=== PATIENT | male | born 1960 | race Caucasian/White ===

== ENCOUNTER 2017-03-04 13:37 | Emergency (ER) | payer MEDICARE, MEDICAID, SELFPAY ==
[2017-03-04 13:38] VITALS: BP 151/97; PULSE 71; RESP 24; TEMP 36.9; O2SAT 98; BMI 34.3
[2017-03-04 14:53] LABS: Basophil# 0.01 X10^3/uL; Basophil% 0.1 % (0-1); Eosinophil# 0.08 X10^3/uL; Hematocrit 44.3 % (40-54); Hemoglobin 15.9 g/dl (13.0-16.5); Lymphocyte % 19.8 % (19-41); Mean Corp Hgb Conc 35.9 g/gl (32-36); Mean Corpuscular Hgb 32.1 pg (27.0-32.0); Mean Corpuscular Volume 89.3 fL (80-94); Mean Platelet Vol. 9.5 fl (6.2-12.0); Monocyte# 0.38 X10^3/uL; Monocyte% 4.7 % (0-10); Neutrophil # 5.99 X10^3/uL (2.7-7.7); Neutrophil % 74.3 % (47-70); POSITIVE COUNT NO; POSITIVE DIFFERENTIAL NO; POSITIVE MORPHOLOGY NO; Platelet Count 181 K/mm3 (150-450); RBC Distribution Width CV 12.1 % (11.6-14.6); RBC Distribution Width SD 38.7 fl (35.1-43.9); Red Blood Count 4.96 M/mm3 (4.6-6.2); White Blood Count 8.1 K/mm3 (4.4-11.0)
[2017-03-04 15:02] LABS: Anion Gap 7 (5-15); BUN 11 mg/dL (7-18); BUN/Creat Ratio 9.9 RATIO (10-20); Calcium,Total 8.6 mg/dL (8.5-10.1); Chloride 103 mmol/L (98-107); Creatinine, Serum 1.11 mg/dL (0.70-1.30); EST Glomerular Filtration Rate 73 mL/min (>60); Est Glom Filt Rate - Afr Amer 88 mL/min (>60); Estimated Creatinine Clearance 75.19 ml/min; Glucose 201 mg/dL (70-110); Potassium 4.7 mmol/L (3.5-5.1); Sodium Level 137 mmol/L (136-145)
--- NOTE | 2017-03-04 15:45 | CT_ITS ---
STUDY: CT ABDOMEN AND PELVIS WITH CONTRAST REASON FOR EXAM: Male, 56 years old. Right-sided abdominal pain beginning today. Nausea. History of pancreatitis. RADIATION DOSAGE (If Supplied By Facility): CTDIvol = ( 18.55 ) mGy, DLP = ( 1172.39 ) mGycm TECHNIQUE: Transaxial images were obtained from the dome of the diaphragm to the symphysis pubis with oral contrast. 100 ml of Isovue 300 contrast was administered. Sagittal and coronal images were reconstructed. Individualized dose optimization techniques were used for this CT. COMPARISON: Report of the CT dated January 19, 2009 which is not available for direct comparison. FINDINGS: The visualized lung bases are unremarkable. The visualized portions of the heart are within normal limits. Liver is normal size contour and density. There is a subcapsular fluid collection along the anterior aspect of segment 2 measuring 3.2 x 1.7 x 2.6 cm. There were multiple gallstones within an otherwise normal gallbladder. There is no biliary ductal dilatation. Normal spleen. Normal pancreas. No pseudocyst is seen on the current study. Normal bilateral adrenal glands. Normal right kidney. Normal left kidney. . Normal visualized stomach. A gastrostomy tube described on the prior study is no longer evident. Normal small intestine. There is a fluid collection adjacent to a small bowel loop in the right upper quadrant measuring 3.2 x 2.7 x 2.7 cm. This is best seen on image 44 of series 2. Question mesenteric cyst. There is scattered colonic diverticuli without acute inflammatory change. There is no evidence of colonic mass or obstruction. The appendix is visualized and appears normal. There is diffuse atherosclerotic calcification of the abdominal aorta, without a demonstrated aneurysm. Normal inferior vena cava. Normal retroperitoneum. Normal urinary bladder. The prostate is mildly enlarged. There is no pelvic lymphadenopathy. No free air or free fluid is seen within the peritoneal cavity. Normal abdominal wall. There are diffuse degenerative changes of the visualized lumbar spine. CT/Abdomen/Pelvis WITH Contrast IMPRESSION: 1. Question mesenteric cyst and adjacent to small bowel loop in the left mid abdomen. 2. Small cyst along the capsular surface of segment 2 of the liver. This appears decreased from the prior study. 3. Gallstones without acute cholecystitis. 4. Scattered colonic diverticuli without acute inflammatory change. 5. Degenerative changes of the lumbar spine. 6. Resolution of a loculated fluid collection along the undersurface of left diaphragm described on the prior study. Electronically Signed: Frederick Moctezuma DO at 18:39 EST Tel [phone], Service support ,
--- NOTE | 2017-03-04 15:46 | ED.VISSUMM ---
- ER Visit Summary Date of Service: 03/04/17 Chief Complaint: Abdominal pain History of Present Illness: The patient is a 56 M who states that this morning after being up for a few hours he was sitting on the couch watching TV when he began to have a right-sided abdominal pain. He can only describe it as a pain. It sometimes radiates to his back. He notes some nausea but no vomiting. States he has a bowel movement once a week. He does not believe he has had any fevers. He has never had any abdominal surgery performed. Physical Examination: Afebrile vital signs are stable Gen: Well-nourished well-developed Head: Normocephalic atraumatic Eyes: Perrl EOMI ENT: TMs clear no rhinorrhea moist mucous membranes Neck: Supple no lymphadenopathy no JVD nontender CVS: Regular rate rhythm no murmurs normal S1-S2 Respiratory: No distress clear to auscultation bilaterally chest nontender Abdomen: Soft tender to palpation in the right quadrants with guarding but without rebound nondistended normal bowel sounds no masses Back: Nontender Extremity: Nontender no edema Skin: Normal color no rash Neuro: alert orientated ?3 CN II-XII intact normal strength sensation reflexes gait cerebellar Psych: Normal affect normal mood Test Results: CBC CMP lipase were normal except for glucose of 201. CT abdomen pelvis was obtained because the patient does not localize to one particular quadrant. This demonstrated cholelithiasis. There is also fluid collection noted. Do not believe this is anything to do with the patient's pain today. Please see radiology read for that. Formal gallbladder ultrasound was obtained. This demonstrated cholelithiasis. Emergency Department Course and Treatment: Patient received IV fluids and Zofran. I have him follow-up with general surgery. I believe this was an episode of biliary colic. I will write for Felicity and some Zofran. Impression: 1. Cholelithiasis 2. Biliary colic This note was generated with [employer] dictation software. It may contain incorrect words, spelling, and punctuation that were not noted in review of the chart prior to signing ED Disposition - Plan for ED Patient: Disposition: Home or Assisted Living Chief Complaint: Abd Pain Instructions: Discharge Instructions for Gallstones Prescriptions: Hydrocodone Bitart/Apap 5-325 [Felicity 5/325] 1 - 2 tab PO Q4H PRN PRN #12 tab PRN Reason: Pain Ondansetron [Zofran Odt] 4 mg PO Q8H PRN PRN #10 tab PRN Reason: Nausea Referrals: Lupillo Hart MD [Primary Care Provider] - Patti Graff MD [STAFF PHYSICIAN] - As soon as possible
[2017-03-04] MEDS: Ondansetron 4 MG/2 ML Vial IV (15:58)
[2017-03-04] MEDS: 0.9% Normal Saline 1,000 ML 125 ML IV (15:58)
[2017-03-04 16:13] LABS: Bacteria 0 SEEN /hpf (None Seen); Mucous, Urine 0 SEEN /hpf (<or=2+)
[2017-03-04 16:14] LABS: AST(SGOT) 17 U/L (15-37); Alanine Aminotransfer ALT/SGPT 23 U/L (12-78); Albumin, Serum 3.8 g/dL (3.4-5.0); Alkaline Phosphatase 99 U/L (45-117); Globulin 4.3 g/dL (2.2-4.2); Lipase 89 U/L (73-393); Protein, Total 8.1 g/dL (6.4-8.2)
[2017-03-04 16:34] LABS: Color, Urine Yellow (Yellow); Glucose, Dipstick 1000 mg/dl (Normal); Ketone-Dipstick Negative (Negative); Leukocyte Esterase-Dipstick Negative /ul (Negative); Nitrite-Dipstick Negative (Negative); Occult Blood-Urine Negative /ul (Negative); Protein-Dipstick 30 mg/dl (Negative); Specific Gravity, Urine 1.015 (1.002-1.030); Urine Bilirubin Dipstick Negative (Negative); Urine Clarity Clear (Clear); Urine Urobilinogen 1 mg/dl (Normal)
[2017-03-04 16:52] LABS: Red Blood Cells-Urine 0-5 SEEN /hpf (0-5); Squamous Epithelial Cells - UA 0-5 SEEN /hpf (0-5); White Blood Cells 0-5 SEEN /hpf (0-5)
[2017-03-04 17:42] VITALS: BP 143/77; PULSE 70; RESP 16; O2SAT 98
--- NOTE | 2017-03-04 18:25 | US_ITS ---
STUDY: ABDOMINAL ULTRASOUND - RIGHT UPPER QUADRANT REASON FOR VISIT: Male, 56 years old. Abdominal pain TECHNIQUE: Ultrasound evaluation of the right upper quadrant was performed with real-time and static reynaga-scale imaging. TECHNICAL QUALITY: Adequate. COMPARISON: None. FINDINGS: Liver: The liver measures 19.9 cm. There is normal echogenicity of the liver. The bile ducts are within normal limits. There is hepatic color flow. The direction of portal flow is hepatopetal. There is a hypoechoic ovoid nodule along the left hepatic edge measuring 3.2 x 1.7 cm, possibly cystic in nature. Gallbladder: Normal distended gallbladder. The gallbladder wall measures 3 mm. There is a negative sonographic Gong's sign. There is no pericholecystic fluid. There are gallstones. Common Bile Duct (C.B.D.): The common bile duct measures 6 mm. Pancreas: Limited visualization of the pancreas. Right Kidney: Normal size of the right kidney. The right kidney measures 11.8 x 5.3 x 5.3 cm. Normal renal cortex. The right cortex measures 1.7 cm. There is no demonstrated renal mass or cyst. There is no right hydronephrosis. US/Gallbladder IMPRESSION: There is associated left hepatic nodule. Cholelithiasis. Borderline gallbladder wall thickness. Electronically Signed: Darin Torres DO at 19:38 EST Tel [phone], Service support ,
[2017-03-04 19:56] VITALS: BP 153/94; PULSE 72; RESP 16; O2SAT 99
[2017-03-04 20:02] VITALS: BP 153/94; PULSE 72; RESP 16; O2SAT 99
== END 2017-03-04 20:06 | disposition home or self-care (01) ==
PROVIDERS: Emergency Provider Emergency Medicine; Family Provider Family Medicine; PCP Family Medicine
DX: K80.20 Calculus of gallbladder without cholecystitis without obstruction (principal); K80.50 Calculus of bile duct without cholangitis or cholecystitis without obstruction; K21.9 Gastro-esophageal reflux disease without esophagitis; I10 Essential (primary) hypertension; E78.00 Pure hypercholesterolemia, unspecified
CPT/HCPCS: 74177; 76705; 80048; 80076; 81001; 83690; 85025; 99283; J7030; Q9967; A4216; J2405

== ENCOUNTER → 2017-03-30 12:39 | Outpatient (CLI) | payer MEDICARE, MEDICAID, SELFPAY | PROVIDERS: Family Provider Family Medicine; PCP Family Medicine; Visit Provider Surgery | DX: Z53.9 Procedure and treatment not carried out, unspecified reason (principal) ==

== ENCOUNTER 2017-06-02 07:48 | Emergency (ER) | payer MEDICARE, MEDICAID, SELFPAY ==
[2017-06-02 07:49] VITALS: BP 169/115; PULSE 103; RESP 16; TEMP 36.2; O2SAT 97; BMI 33.5
--- NOTE | 2017-06-02 08:02 | ED.RN ---
med rec completed to the pt's best ability.
--- NOTE | 2017-06-02 08:11 | CT_ITS ---
STUDY: CT FACIAL BONES WITHOUT CONTRAST REASON FOR EXAM: Male, 56 years old. Right jaw and chin pain status post fall. RADIATION DOSAGE (If Supplied By Facility): CTDIvol = ( 29.38 ) mGy, DLP = ( 496.03 ) mGycm TECHNIQUE: The patient was scanned in a multi detector CT scanner. Sagittal and coronal images were reconstructed. Individualized dose optimization techniques were used for this CT. COMPARISON: None. FINDINGS: Normal soft tissue structures. Normal orbital de jesus and orbital contents. Normal nasal bones and anterior nasal spine. Normal facial bones. There are bilateral nasal bone fractures with sclerotic margination and without soft tissue swelling suggesting nonacute. There are findings consistent with small mucous retention cysts in the bilateral maxillary sinuses. CT/Sinus/Facial Bone IMPRESSION: Non-acute bilateral nasal bone fractures. Mucous retention cysts within the bilateral maxillary sinuses. No paranasal sinus air-fluid level. Electronically Signed: Diony Donald MD at 8:46 EDT , Service support ,
--- NOTE | 2017-06-02 08:13 | ED.VISSUMM ---
- ER Visit Summary Date of Service: 06/02/17 Chief Complaint: Fall with chin and right jaw pain History of Present Illness: The patient is a 56 M who has a past medical history of insulin-dependent diabetes. Patient uses a walking stick to walk. Yesterday he fell landing on his right jaw and chin. Does not believe he had any LOC. And is not on blood thinners. Denies any neck pain denies any arm or leg weakness or pain. Complaining of soreness and discomfort to his chin and right jaw with pain with opening closing his mouth. He does not have any teeth so he did not knock out any teeth or chip any teeth. Physical Examination: Well-appearing middle-aged male. Vital signs are stable and afebrile. H EENT exam pupils are reactive to light. He has tenderness along his right lower jaw and chin. There is no gross bony deformity. He is able to open and close complains of discomfort. He does not have any upper or lower teeth. There is no lacerations or trauma inside his mouth. The rest of his face and scalp is nontender without any signs of trauma. C-spine and back are nontender. He has normal range of motion to his neck. Lungs clear all station bilaterally. Chest wall nontender. Heart regular rate and rhythm. Abdomen soft and nontender. Pelvic girdle intact. He is moving all 4 extremities. They are nontender. With normal range of motion. He has 5 out of 5 optician apprentice strength. And dorsi plantar flexion intact. Neurologically he is awake and alert without focal motor deficits. Test Results: Patient will undergo a CT facial bones to evaluate his jaw. He did facial bones as read by the radiologist reviewed by me shows no acute fracture. There was old nasal bone fractures. Emergency Department Course and Treatment: Fco exam patient is doing well at 10 AM will be discharged home. Ice to his jaw Motrin for pain. Treatment Plan: [] Disposition: Discharge Impression: Fall Chin and jaw contusion This note was generated with [employer] dictation software. It may contain incorrect words, spelling, and punctuation that were not noted in review of the chart prior to signing ED Disposition - Plan for ED Patient: Disposition: Home or Assisted Living Chief Complaint: Fall Instructions: ED Contusion Face Referrals: Lupillo Hart MD [Primary Care Provider] - 1 Week if not improving Additional Instructions: To jaw and face. Motrin and Tylenol for pain. Follow-up with primary care physician if not improving in 1 week.
--- NOTE | 2017-06-02 08:16 | ED.DCSUM_ITS ---
- ER Visit Summary Date of Service: 06/02/17 Chief Complaint: Fall with chin and right jaw pain History of Present Illness: The patient is a 56 M who has a past medical history of insulin-dependent diabetes. Patient uses a walking stick to walk. Yesterday he fell landing on his right jaw and chin. Does not believe he had any LOC. And is not on blood thinners. Denies any neck pain denies any arm or leg weakness or pain. Complaining of soreness and discomfort to his chin and right jaw with pain with opening closing his mouth. He does not have any teeth so he did not knock out any teeth or chip any teeth. Physical Examination: Well-appearing middle-aged male. Vital signs are stable and afebrile. H EENT exam pupils are reactive to light. He has tenderness along his right lower jaw and chin. There is no gross bony deformity. He is able to open and close complains of discomfort. He does not have any upper or lower teeth. There is no lacerations or trauma inside his mouth. The rest of his face and scalp is nontender without any signs of trauma. C-spine and back are nontender. He has normal range of motion to his neck. Lungs clear all station bilaterally. Chest wall nontender. Heart regular rate and rhythm. Abdomen soft and nontender. Pelvic girdle intact. He is moving all 4 extremities. They are nontender. With normal range of motion. He has 5 out of 5 receiving manager strength. And dorsi plantar flexion intact. Neurologically he is awake and alert without focal motor deficits. Test Results: Patient will undergo a CT facial bones to evaluate his jaw. He did facial bones as read by the radiologist reviewed by me shows no acute fracture. There was old nasal bone fractures. Emergency Department Course and Treatment: Fco exam patient is doing well at 10 AM will be discharged home. Ice to his jaw Motrin for pain. Treatment Plan: [] Disposition: Discharge Impression: Fall Chin and jaw contusion This note was generated with [employer] ([employer] dictation software. It may contain incorrect words, spelling, and punctuation that were not noted in review of the chart prior to signing ED Disposition - Plan for ED Patient: Disposition: Home or Assisted Living Chief Complaint: Fall Instructions: ED Contusion Face Referrals: Lupillo Hart MD [Primary Care Provider] - 1 Week if not improving Additional Instructions: To jaw and face. Motrin and Tylenol for pain. Follow-up with primary care physician if not improving in 1 week.
--- NOTE | 2017-06-02 10:03 | ED.DEP ---
ED Disposition - Plan for ED Patient: Disposition: Home or Assisted Living Chief Complaint: Fall Instructions: ED Contusion Face Referrals: Lupillo Hart MD [Primary Care Provider] - 1 Week if not improving Additional Instructions: To jaw and face. Motrin and Tylenol for pain. Follow-up with primary care physician if not improving in 1 week.
[2017-06-02 10:10] VITALS: BP 129/84; PULSE 72; RESP 16; O2SAT 96
== END 2017-06-02 10:10 | disposition home or self-care (01) ==
PROVIDERS: Emergency Provider Emergency Medicine; Family Provider Family Medicine; PCP Family Medicine
DX: S00.83XA Contusion of other part of head, initial encounter (principal); W18.30XA Fall on same level, unspecified, initial encounter; Y93.01 Activity, walking, marching and hiking; Y92.9 Unspecified place or not applicable; Y99.9 Unspecified external cause status; E11.9 Type 2 diabetes mellitus without complications; Z79.4 Long term (current) use of insulin; Z72.0 Tobacco use
CPT/HCPCS: 70486; 99282

== ENCOUNTER 2018-09-29 19:14 | Emergency (ER) | payer MEDICARE, SELFPAY ==
[2018-09-29 19:15] VITALS: BP 149/103; PULSE 117; RESP 18; TEMP 36.7; O2SAT 97; BMI 26.2
--- NOTE | 2018-09-29 19:31 | EKG12_ITS ---
Test Reason : DEPRESSION Blood Pressure : / mmHG Vent. Rate : 100 BPM Atrial Rate : 100 BPM P-R Int : 154 ms QRS Dur : 084 ms QT Int : 348 ms P-R-T Axes : 068 -07 056 degrees QTc Int : 448 ms Normal sinus rhythm Normal ECG Confirmed by DIMPLE ODELL, POLI ([id number]), editorial project manager MARIA LUISA PELAEZ ([id number]) on 10/03/2018 11:42:38 AM Referred By: RU Confirmed By:POLI MUSA MD
[2018-09-29 19:53] LABS: Absolute Lymphocyte Count 1.42 X10^3/uL (0.83-4.51); Basophil# 0.02 X10^3/uL; Basophil% 0.3 % (0-1); Eosinophil# 0.04 X10^3/uL; Eosinophils% 0.6 % (0-5); Hematocrit 43.1 % (40-54); Hemoglobin 15.9 g/dL (13.0-16.5); Lymphocyte # 1.42 X10^3/ul (4.0); Lymphocyte % 20.2 % (19-41); Mean Corp Hgb Conc 36.9 g/dL (32-36); Mean Corpuscular Hgb 32.1 pg (27.0-32.0); Mean Corpuscular Volume 86.9 fL (80-94); Monocyte% 7.1 % (0-10); NRBC Flagged by Analyzer 0 % (0-5); Neutrophil # 5.03 X10^3/uL (2.7-7.7); Neutrophil % 71.5 % (47-70); Platelet Count 219 K/mm3 (150-450); RBC Distribution Width CV 11.7 % (11.6-14.6); RBC Distribution Width SD 36.6 fl (35.1-43.9); Red Blood Count 4.96 M/mm3 (4.6-6.2)
[2018-09-29 20:08] LABS: Anion Gap 6 (5-15); BUN 17 mg/dL (7-18); BUN/Creat Ratio 13.5 RATIO (10-20); Chloride 107 mmol/L (98-107); Creatinine, Serum 1.26 mg/dL (0.70-1.30); EST Glomerular Filtration Rate 63 mL/min (>60); Est Glom Filt Rate - Afr Amer 76 mL/min (>60); Estimated Creatinine Clearance 64.68 ml/min; Glucose 288 mg/dL (74-106); Sodium Level 138 mmol/L (136-145)
--- NOTE | 2018-09-29 20:30 | CM.ED ---
SOCIAL WORK INFORMANT: DR. MONTAGUE REASON FOR REFERRAL: MENTAL HEALTH LIVING SITUATION: PATIENT IS HOMELESS, CURRENTLY STAYING WITH HIS [id number] EMPLOYMENT/FINANCIAL: DISABLED SUPPORTS: PATIENT REPORTS FOLLOWED WITH THE COUNSELING CENTER AND IS TRYING TO GET RE-ESTABLISHED. MENTAL HEALTH HX: PATIENT AND [id number] REPORT PATIENT WITH HX OF BIPOLAR DISORDER. PATIENT STATES HAS BEEN OUT OF HIS MEDICATIONS FOR A LITTLE OVER 2 WEEKS. SUBSTANCE ABUSE HX: PATIENT AND [id number]-BE-GNT REPORT HX OF ALCOHOL ABUSE, MARIJUANA USE, AND DAILY TOBACCO USE. PATIENT DENIES ANY RECENT USE OF MARIJUANA OR ALCOHOL. INTERVENTIONS: SOCIAL SERVICE ASSESSMENT INFORMATION PROVIDED ON THE [employer] CALL TO THE [facility]SELING [facility], PATIENT LAST SEEN IN JUNE 2017. ADVISING PATIENT COME IN TOMORROW TO SET UP OUTPATIENT SERVICES. ASSESSMENT: PATIENT IS A 58 Y/O MALE WHO PRESENTS TO THE EMERGENCY DEPT D/T DEPRESSION AND MEDICATION REFILL. PER PATIENT AND [id number], PATIENT IS CURRENTLY HOMELESS AND STAYING WITH [id number]. PATIENT IS TRYING TO GET RE-ESTABLISHED WITH THE COUNSELING CENTER. INFORMATION PROVIDED ON THE [employer]. [id number] REPORTS WILL BE TAKING PATIENT TO THE COUNSELING CENTER IN THE MORNING AND PATIENT WILL RESIDE WITH [id number] UNTIL ALTERNATIVE HOUSING HAS BEEN ARRANGED FOR PATIENT. PATIENT DENIES ANY SUICIDAL OR HOMICIDAL IDEATION. PATIENT CALM AND COOPERATIVE DURING ASSESSMENT. DISCUSSED THIS WORKER'S ASSESSMENT WITH DR. MONTAGUE. ANTICIPATE D/C HOME WITH [id number] AND FOLLOW UP WITH THE COUNSELING CENTER IN THE MORNING. KAI RENE, AUTOMOTIVE GENERAL SALES MANAGER, VERIFICATION ENGINEER.
[2018-09-29 21:03] LABS: Bacteria 0 SEEN /hpf (None Seen); Mucous, Urine 0 SEEN /hpf (<or=2+); Red Blood Cells-Urine 0 SEEN /hpf (0-5); Squamous Epithelial Cells - UA 0 SEEN /hpf (0-5); White Blood Cells 0 SEEN /hpf (0-5)
[2018-09-29 21:05] LABS: Color, Urine Yellow (Yellow); Glucose, Dipstick 1000 mg/dl (Normal); Ketone-Dipstick 5 mg/dl (Negative); Leukocyte Esterase-Dipstick Negative /ul (Negative); Nitrite-Dipstick Negative (Negative); Occult Blood-Urine Negative /ul (Negative); Protein-Dipstick 100 mg/dl (Negative); Specific Gravity, Urine 1.015 (1.002-1.030); Urine Bilirubin Dipstick Negative (Negative); Urine Clarity Clear (Clear); Urine Urobilinogen 4 mg/dl (Normal)
[2018-09-29 21:18] LABS: Amphetamine Urine VISTA NEGATIVE (<1000 ng/mL); Barbiturate Urine VISTA NEGATIVE (< 200 ng/mL); Benzodiazepine Urine VISTA NEGATIVE (< 200 ng/mL); Cocaine Urine VISTA NEGATIVE (< 300 ng/mL); Ecstacy Urine VISTA NEGATIVE (< 500 ng/mL); Methadone Urine VISTA NEGATIVE (< 300 ng/mL); PCP Urine VISTA NEGATIVE (< 25 ng/mL); THC Urine VISTA POSITIVE (< 50 ng/mL); Vista UDS pH Range 6
--- NOTE | 2018-09-29 21:50 | ED.DCSUM_ITS ---
- ER Visit Summary Date of Service: 09/29/18 Chief Complaint: [Depression] History of Present Illness: The patient is a 58 M [presents to the emergency department with 2 to 3-day history of feeling increasingly depressed. Patient recently moved back to town and staying with his [id number]-wh-qea. Patient rakesh griffin is homeless. He has been without his psychiatric medications for several weeks. Patient has not slept in 3 days and at times is increasingly agitated. Her ugfewdw-pu-nvh has become quite reclusive. Patient does not have any thoughts of wanting to harm himself or anybody else. He does state that at times he hears voices. He denies any visual hallucinations. Patient does have diagnoses of bipolar and history of diabetes and elevated cholesterol.] Physical Examination: [HEENT-PERRLA, EOMI. Cranial nerves II through XII grossly intact. TMs clear. Mucous membranes moist. No adenopathy. Cardiovascular-regular rate and rhythm without murmur or ectopy Lungs-clear to auscultation, chest wall stable without crepitus or subcu emphysema Abdomen-normoactive bowel sounds, soft, nontender, no rebound or rigidity, no peritoneal signs. Extremities-intact ?4, normal range of motion, normal pulses, atraumatic] Test Results: [CBC with differential was normal. Chemistries unremarkable. Glucose was 288. Urinalysis was unremarkable. Tox screen was positive for marijuana and alcohol was 5.0.] Emergency Department Course and Treatment: [She was seen by clinical social work therapist in the emergency department at this time so he does not meet any type of admission criteria to psychiatric facility. Patient is in agreement. His jfnqsyn-ls-vnf will take him home and they will follow-up with the counseling center tomorrow. I will refer him to primary care physician for follow-up as well.] Treatment Plan: [We will up with counseling center and primary care physician] Disposition: [Discharged home stable condition] Impression: [Depression Bipolar Hyperglycemia and known diabetic] This note was generated with [employer] software. It may contain incorrect words, spelling, and punctuation that were not noted in review of the chart prior to signing ED Disposition - Plan for ED Patient: Referrals: Lupillo Hart MD [Primary Care Provider] -
--- NOTE | 2018-09-29 21:52 | ED.DEP ---
ED Disposition - Plan for ED Patient: Instructions: Bipolar Disorder, Depression Referrals: Lupillo Hart MD [Primary Care Provider] - 3-5 Days
[2018-09-29 21:59] VITALS: BP 154/72; PULSE 92; RESP 19; O2SAT 97
== END 2018-09-29 22:00 | disposition home or self-care (01) ==
LOC: ED 19:53
PROVIDERS: Emergency Provider Emergency Medicine; Family Provider Family Medicine; PCP Family Medicine
DX: F31.9 Bipolar disorder, unspecified (principal); E78.00 Pure hypercholesterolemia, unspecified; E11.65 Type 2 diabetes mellitus with hyperglycemia; Z59.0 Homelessness; Z72.0 Tobacco use; F11.20 Opioid dependence, uncomplicated
CPT/HCPCS: 36415; 80048; 80307; 80320; 81001; 85025; 93005; 99282; G0480

== ENCOUNTER 2018-10-14 15:22 | Emergency (ER) | payer MEDICARE, SELFPAY ==
[2018-10-14 15:24] VITALS: BP 162/10; BP 168/102; PULSE 102; PULSE 108; RESP 17; RESP 18; TEMP 36.8; TEMP 36.9; O2SAT 95; O2SAT 96; BMI 26.2
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
[2018-10-14] MEDS: oxyCODONE 5 MG Tablet 10 MG PO (15:43)
[2018-10-14 16:10] VITALS: BP 140/90
== END 2018-10-14 16:11 | disposition home or self-care (01) ==
LOC: ED 15:49
PROVIDERS: Emergency Provider Emergency Medicine; Family Provider Family Medicine; PCP Family Medicine
DX: R07.89 Other chest pain (principal); F17.200 Nicotine dependence, unspecified, uncomplicated; F32.9 Major depressive disorder, single episode, unspecified; G89.29 Other chronic pain
CPT/HCPCS: 99283

== ENCOUNTER 2018-10-21 21:59 | Emergency (ER) | payer MEDICARE, SELFPAY ==
[2018-10-21 22:01] VITALS: BP 144/89; PULSE 94; RESP 18; TEMP 37.2; O2SAT 98; BMI 27.9
--- NOTE | 2018-10-21 22:14 | ED.DCSUM_ITS ---
- ER Visit Summary Date of Service: 10/21/18 Chief Complaint: Back pain History of Present Illness: The patient is a 58 M who presents with worsening chronic back pain over the past 2 days. Patient denies any trauma or injury. Patient describes the pain is sharp. Patient states pain is over the lower lum bar area and shoots up his spine. Patient states he also has pain radiating to his right leg. Patient admits to tingling but denies any numbness or weakness. Patient denies any fevers or chills. Patient denies abdominal pain. Patient denies any urinary retention or incontinence. Patient denies any stool incontinence. Patient denies any saddle anesthesia. Physical Examination: Vital signs are stable. Patient is afebrile. Patient is in no acute distress. Musculoskeletal exam reveals tenderness over the lumbar spine and paraspinal muscles. There is no bony crepitance or step-off. There is good range of motion with flexion up to 90 degrees. Straight leg raises were negative bilaterally. Strength is 5/5 bilateral knee upper and lower extremities. There are no sensory deficits noted. Deep tendon reflexes are 2+/4 bilaterally in the upper and lower extremities. Heart was regular rate and rhythm. Lungs are clear and equal bilaterally. Abdomen is soft. Bowel sounds are normal. There is no tenderness. Emergency Department Course and Treatment: Patient was given a dose of oxycodone here. Patient was given an injection of Norflex. Patient was instructed to follow-up with his primary care physician in 2 to 3 days. Patient was instructed to continue his analgesics as previously prescribed. Patient under stood and was agreeable with the plan. All questions were answered. Disposition: Discharge home Impression: Acute exacerbation chronic back pain This note was generated with [employer] dictation software. It may contain incorrect words, spelling, and punctuation that were not noted in review of the chart prior to signing ED Disposition - Plan for ED Patient: Disposition: Home or Assisted Living Diagnosis: Acute exacerbation of chronic low back pain Instructions: BACK PAIN (Acute or Chronic) Referrals: Lupillo Hart MD [Primary Care Provider] - 3-5 Days
[2018-10-21] MEDS: oxyCODONE 5 MG Tablet PO (22:20)
== END 2018-10-21 22:34 | disposition home or self-care (01) ==
LOC: ED 22:31
PROVIDERS: Emergency Provider Emergency Medicine; Family Provider Family Medicine; PCP Family Medicine
DX: M54.9 Dorsalgia, unspecified (principal); G89.29 Other chronic pain; R51 Headache; M54.2 Cervicalgia; R20.2 Paresthesia of skin; E11.9 Type 2 diabetes mellitus without complications; I10 Essential (primary) hypertension; E78.00 Pure hypercholesterolemia, unspecified; F17.210 Nicotine dependence, cigarettes, uncomplicated; F12.90 Cannabis use, unspecified, uncomplicated
CPT/HCPCS: 99282

== ENCOUNTER 2018-10-26 13:17 | Emergency (ER) | payer MEDICARE, SELFPAY ==
[2018-10-26 13:18] VITALS: BP 150/93; PULSE 96; RESP 16; TEMP 36.4; O2SAT 95; BMI 27.6
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
[2018-10-26] MEDS: predniSONE 20 MG Tablet 40 MG PO (14:27)
[2018-10-26] MEDS: Acyclovir 800 MG Tablet PO (14:52)
[2018-10-26 14:55] VITALS: RESP 16
--- NOTE | 2018-10-26 14:55 | ED.RN ---
REVIEWED D/C INSTRUCTIONS, FOLLOW UP CARE, PRESCRIPTIONS, AND S/S THAT WOULD WARRANT A RETURN TO THE ED WITH PT. PT VERBALIZED AN UNDERSTANDING AND DENIES FURTHER QUESTIONS FOR THIS RN. PT SKIN P/W/D, RESP EVEN AND UNLABORED, PT A&O X 3, NO DISTRESS NOTED. PT AMBULATED OUT OF ED, GAIT STEADY.
== END 2018-10-26 14:56 | disposition home or self-care (01) ==
LOC: ED 14:31
PROVIDERS: Emergency Provider Emergency Medicine; Family Provider Family Medicine; PCP Family Medicine
DX: B02.9 Zoster without complications (principal); F17.200 Nicotine dependence, unspecified, uncomplicated
CPT/HCPCS: 99283